=== PATIENT | male | born 1950 | race Caucasian/White ===

== ENCOUNTER 2024-03-15 16:55 | Inpatient (IN) | payer OTHER, MEDICAID ==
[~2024-03-15] VITALS: Ht 175.3 cm; Wt 100.2 kg
[~2024-03-15 16:55] MED LIST: ATE50T PO; ENO40SY SC
[2024-03-15 20:11] LABS: Basophils # (auto) 0 10 ^3/uL (0-0.2); Basophils % (auto) 0.3 % (0.0-2.0); Eosinophils # (auto) 0 10 ^3/uL (0-0.8); Hematocrit 35.3 % (41.0-53.0); Hemoglobin 11.6 g/dL (13.5-17.5); Lymphocytes # (auto) 0.8 10 ^3/uL (0.4-5.4); Lymphocytes % (auto) 6.5 % (10.0-50.0); Mean Corpuscular Hemoglobin 31.3 pg (28.0-32.0); Mean Corpuscular Hgb Conc. 32.8 g/dL (32.0-36.0); Mean Corpuscular Volume 95.7 fL (80.0-100.0); Monocytes # (auto) 0.8 10 ^3/uL (0-1.3); Monocytes % (auto) 6.6 % (0.0-12.0); Neutrophils # (auto) 10.6 10 ^3/uL (1.6-8.6); Neutrophils % (auto) 86.6 % (37.0-80.0); Red Blood Cells 3.69 10^6/uL (4.5-5.90); Red Cell Distribution Width 14.8 % (11.8-14.3); White Blood Cell 12.3 10^3/uL (4.4-10.8)
[2024-03-15 20:20] LABS: Chloride 101 mmol/L (98-107); Potassium 4.2 mmol/L (3.5-5.1); Sodium 135 mmol/L (136-145)
[2024-03-15 20:21] LABS: Anion Gap 7 (5-15); Calcium 9.1 mg/dL (8.5-10.1); Carbon Dioxide 27 mmol/L (20-30)
[2024-03-15 20:26] LABS: Blood Urea Nitrogen 16 mg/dL (9-23); Glucose 124 mg/dL (74-106)
[2024-03-15] MEDS ORDERED: cefTRIAXone 1GM/50ML D5W 50 ML IV ONE (22:15)
[2024-03-15] MEDS ORDERED: ACETAMINOPHEN 325 MG TAB PO PRN (22:30)
[2024-03-15] MEDS: levoFLOXacin 500MG 100 ML IV ONE (22:30)
[2024-03-15] MEDS ORDERED: ONDANSETRON HCL 4 MG/2 ML VIAL IV PRN (22:30)
[2024-03-15 22:45] VITALS: BP 128/74; PULSE 89; RESP 19; TEMP 101.2; O2SAT 97
[2024-03-16] VITALS (12 sets, daily range): BP systolic 106–146; BP diastolic 54–79; PULSE 60–72; RESP 16–69; TEMP 97.7–98.1; O2SAT 91–99
[2024-03-16 09:02] LABS: Basophils # (auto) 0 10 ^3/uL (0-0.2); Basophils % (auto) 0.3 % (0.0-2.0); Eosinophils # (auto) 0.1 10 ^3/uL (0-0.8); Eosinophils % (auto) 0.9 % (0.0-7.0); Hematocrit 32.7 % (41.0-53.0); Hemoglobin 10.9 g/dL (13.5-17.5); Lymphocytes # (auto) 1.4 10 ^3/uL (0.4-5.4); Lymphocytes % (auto) 15.8 % (10.0-50.0); Mean Corpuscular Hemoglobin 32.1 pg (28.0-32.0); Mean Corpuscular Hgb Conc. 33.3 g/dL (32.0-36.0); Mean Corpuscular Volume 96.4 fL (80.0-100.0); Monocytes # (auto) 0.8 10 ^3/uL (0-1.3); Monocytes % (auto) 9.2 % (0.0-12.0); Neutrophils # (auto) 6.5 10 ^3/uL (1.6-8.6); Neutrophils % (auto) 73.8 % (37.0-80.0); Nucleated Red Blood Cells % 0.2 %; Red Blood Cells 3.39 10^6/uL (4.5-5.90); Red Cell Distribution Width 14.8 % (11.8-14.3); White Blood Cell 8.9 10^3/uL (4.4-10.8)
[2024-03-16 09:23] LABS: Alanine Aminotransferase 11 U/L (7-40); Albumin 4.2 g/dL (3.2-4.8); Alkaline Phosphatase 54 U/L (46-116); Anion Gap 8 (5-15); Aspartate Aminotransferase 16 U/L (13-40); BUN/Creatinine Ratio 17.5 (10.0-20.0); Bilirubin, Total 0.8 mg/dL (0.2-1.0); Blood Urea Nitrogen 14 mg/dL (9-23); Carbon Dioxide 27 mmol/L (20-30); Chloride 102 mmol/L (98-107); Glucose 106 mg/dL (74-106); Potassium 3.5 mmol/L (3.5-5.1); Sodium 137 mmol/L (136-145); Total Protein 6.3 g/dL (5.7-8.2)
[2024-03-16] MEDS: GABAPENTIN 300 MG CAP PO SCH (09:46)
[2024-03-16] MEDS: amLODIPine BESYLATE 5 MG TAB PO SCH (09:46)
[2024-03-16] MEDS: ATENOLOL 25 MG TAB PO SCH (09:48)
[2024-03-16] MEDS: ALBUTEROL SULF 2.5 MG/0.5ML(0.5%) NEB SOLN NEB PRN (15:43)
[2024-03-16] MEDS: TAMSULOSIN HYDROCHLORIDE 0.4 MG CAP PO SCH (18:38)
[2024-03-16] MEDS ORDERED: LORA-483 PO (20:26)
[2024-03-16] MEDS ORDERED: OXYC325T14 PO (20:26)
[2024-03-16] MEDS ORDERED: TAMS0.4C36 PO (20:26)
[2024-03-16] MEDS ORDERED: METH-1181 PO (20:26)
[2024-03-16] MEDS ORDERED: GABA-1250 PO (20:26)
[2024-03-16] MEDS ORDERED: VARE1TAB11 PO (20:26)
[2024-03-16] MEDS ORDERED: ATOR40TA52 PO (20:26)
[2024-03-16] MEDS ORDERED: ATEN50TA PO (20:26)
[2024-03-16] MEDS ORDERED: BUPR300T28 PO (20:26)
[2024-03-16] MEDS ORDERED: AMLO1TAB22 PO (20:26)
[2024-03-16] MEDS ORDERED: MIRT1TAB39 PO (20:26)
[2024-03-16] MEDS ORDERED: PANT40TA57 PO (20:26)
[2024-03-16] MEDS ORDERED: ASPI-325 PO (20:26)
[2024-03-16] MEDS ORDERED: CYAN100042 PO (20:26)
[2024-03-16] MEDS ORDERED: DOXY100T2 PO (20:26)
[2024-03-16] MEDS ORDERED: CHOL20002 PO (20:26)
[2024-03-16] MEDS: ATORVASTATIN 20 MG TAB PO SCH (21:46)
[2024-03-16] MEDS: MIRTAZAPINE 30 MG TAB PO SCH (21:46)
[2024-03-16] MEDS: levoFLOXacin 500MG 100 ML IV SCH (21:50)
[2024-03-17] VITALS (17 sets, daily range): BP systolic 116–155; BP diastolic 66–79; PULSE 60–82; RESP 16–21; TEMP 97.6–98.6; O2SAT 90–97
[2024-03-17 11:48] LABS: Base Excess 0.4 mmol/L (-2.0-2.0)
[2024-03-17] MEDS: ALBUTEROL SULF 2.5 MG/0.5ML(0.5%) NEB SOLN NEB SCH (14:40)
[2024-03-17] MEDS: NICOTINE 14 MG/24HR TOPICAL PATCH TD ONE (17:50)
[2024-03-17] MEDS: methylPREDNISolone SOD SUCC 40 MG/ML VL IV ONE (19:56)
[2024-03-18] VITALS (20 sets, daily range): BP systolic 111–152; BP diastolic 62–77; PULSE 65–79; RESP 16–20; TEMP 97.1–98.2; O2SAT 90–99
[2024-03-18] MEDS: methylPREDNISolone SOD SUCC 40 MG/ML VL IV SCH (08:38)
[2024-03-18] MEDS: ASPirin 81 mg TAB PO SCH (08:39)
[2024-03-18] MEDS: NICOTINE 14 MG/24HR TOPICAL PATCH TD SCH (08:40)
[2024-03-18] MEDS ORDERED: methylPREDNISolone SOD SUCC 40 MG/ML VL IV SCH (10:00)
[2024-03-18] MEDS: buPROPion HCL 100 MG TAB PO SCH (11:20)
[2024-03-18] MEDS: MIRTAZAPINE 30 MG TAB PO SCH (20:47)
[2024-03-19] VITALS (17 sets, daily range): BP systolic 134–143; BP diastolic 60–70; PULSE 63–95; RESP 14–20; TEMP 98.3–98.5; O2SAT 92–100
[2024-03-20] VITALS (12 sets, daily range): BP systolic 84–152; BP diastolic 41–88; PULSE 65–84; RESP 17–20; TEMP 97.6–98; O2SAT 92–100
[2024-03-20] MEDS ORDERED: DEXT1SYP9 PO (12:12)
[2024-03-20] MEDS ORDERED: NIC21P TOP (12:12)
[2024-03-20] MEDS ORDERED: LEVO500T91 PO (12:12)
[2024-03-20] MEDS ORDERED: PRED20TA2 PO (12:12)
[2024-03-20] MEDS ORDERED: ALBUAER3 IN (12:12)
== END 2024-03-20 16:12 | disposition home or self-care (01) | DRG 871 ==
LOC: ER 16:55 → EDBD 16:55 → OVERFLOW 22:38 → WEST WING 22:38
PROVIDERS: ADMIT Family Medicine; ATTEND Family Medicine
DX: A41.9 Sepsis, unspecified organism (principal); J18.9 Pneumonia, unspecified organism; J96.01 Acute respiratory failure with hypoxia; N17.9 Acute kidney failure, unspecified; J44.0 Chronic obstructive pulmonary disease with (acute) lower respiratory infection; J44.1 Chronic obstructive pulmonary disease with (acute) exacerbation; E78.00 Pure hypercholesterolemia, unspecified; J43.9 Emphysema, unspecified; Z68.32 Body mass index [BMI] 32.0-32.9, adult; E66.9 Obesity, unspecified; F10.20 Alcohol dependence, uncomplicated; D63.8 Anemia in other chronic diseases classified elsewhere; I25.10 Atherosclerotic heart disease of native coronary artery without angina pectoris; F17.210 Nicotine dependence, cigarettes, uncomplicated; K21.9 Gastro-esophageal reflux disease without esophagitis; N40.0 Benign prostatic hyperplasia without lower urinary tract symptoms; M81.0 Age-related osteoporosis without current pathological fracture; I50.9 Heart failure, unspecified; I11.0 Hypertensive heart disease with heart failure; R29.6 Repeated falls; F32.A Depression, unspecified; Z85.46 Personal history of malignant neoplasm of prostate; Z88.0 Allergy status to penicillin; Z88.5 Allergy status to narcotic agent; I69.328 Other speech and language deficits following cerebral infarction; Z82.49 Family history of ischemic heart disease and other diseases of the circulatory system; Z85.828 Personal history of other malignant neoplasm of skin; Z92.3 Personal history of irradiation
CPT/HCPCS: 36415; 36600; 71045; 71250; 80048; 80053; 82805; 83605; 83880; 84484; 85025; 87040; 93306; 94640; G0378; J1956